=== PATIENT | male | born 1970 | race Caucasian/White ===

== ENCOUNTER 2024-10-15 20:06 | Emergency (ER) | payer BC, SELFPAY ==
[2024-10-15 20:16] VITALS: BP 175/100
[2024-10-15 21:56] VITALS: BMI 33.0
--- NOTE | 2024-10-15 23:17 | ED.GENMED ---
History of Present Illness
General
Chief Complaint: Musculo-Skeletal Complaint
Source: patient
Exam Limitations: none
Time Seen by Provider: 10/15/24 23:14
Nursing documentation reviewed up to this point in time: agreed with
History of Present Illness
History of Present Illness:
54-year-old male with a past medical history of hyperlipidemia presents to the emergency department today with concerns of left knee pain for the past 4 days. Patient reports that he has been increasing his running endurance recently and reports
that after his last run, he noted left knee pain and swelling he after stopping running. He states that he has been able to bear weight and states that the pain is usually bearable but sometimes it will get to the point where he will have
ibuprofen. He has been trying to hold off taking ibuprofen because he has lower platelet levels and he is going to see disease management nurse soon for this. Patient reports ibuprofen completely relieves his pain. Patient has tried compression stockings and
Tommy wraps with minimal relief. He notices the most discomfort when he is bearing weight or standing up but is relatively comfortable at rest. He denies any other injuries. He denies any other falls. He denies any pain or swelling in his calf.
Past History
Past History
ED Past Medical History: Hypercholesterolemia
ED Past Surgical History: None
Social History
Tobacco: Non-smoker
Alcohol: Occasional
Personal:
Living: with family
Review of Systems
Review of Systems
All Other Systems: ROS reviewed and negative except as documented in HPI and ROS
Phy Exam
Physical Exam
Physical Exam:
General: Patient is well appearing and in no acute distress; non-toxic
Skin: Warm and dry, no rashes or lesions
Head: Normocephalic, atraumatic
Eyes: Sclera non-icteric. EOMs intact.
Cardiac: Regular
Peripheral Vascular: 2+ DP and PT pulses on the left
Pulm: Normal respiratory effort
Musculoskeletal: Mild swelling noted surrounding the left knee, negative anterior drawer testing, negative Dickson's, no pain with varus valgus stress. Some pain with valgus stress of the left ankle but no significant ligamentous instability.
Neuro: CN II-XII intact, no focal neurologic deficits.
Psychiatric: Appropriate mood and affect.
Course
Orders/Labs/Results
Orders:
Orders
10/15/24 20:08
CR Knee - Left 4 Or More View* Urgent
Reason For Exam: PAIN/SWELLING
10/15/24 23:54
Cyclobenzaprine HCl [Flexeril] 5 mg PO NOW STA
Vital Signs
Initial and Last Documented VS:
Initial Vital Signs
Temp Pulse Resp BP Pulse Ox
99.4 F 90 16 175/100 99
10/15/24 20:16 10/15/24 20:16 10/15/24 20:16 10/15/24 20:16 10/15/24 20:16
Last Documented Vital Signs
Temp Pulse Resp BP Pulse Ox
99.4 F 90 16 175/100 99
10/15/24 20:16 10/15/24 20:16 10/15/24 20:16 10/15/24 20:16 10/15/24 20:16
MDM/Problems Addressed
Differential Diagnosis Includes:
Differentials include osteoarthritis, overuse injury, patellar tendinitis, quadriceps tendinitis, tibial plateau fracture,
MDM/Problems Addressed:
54-year-old male past medical Struve hyperlipidemia presents emergency department today with concerns right knee pain. Patient states that he started to increase his running recently and started to develop some pain. He denies any other injuries.
Physical exam he does have some tenderness around the knee joint most tender over the patellar tendon. He has neurovascularly intact. His x-ray shows moderate soft tissue swelling subcutaneous edema throughout the anterior as well as findings that
show just distal quadriceps tendinosis and edema surrounding the patellar tendon. Suspect tendinitis. Patient placed in knee immobilizer. Return precautions discussed. Follow-up with orthopedics discussed as well. Patient stable for discharge
Chronic conditions affecting care:
n/a
*Pulse Oximetry
Patient hypoxic: no
*Critical Care Note
Total Time (30-74mins, 75-104mins- exclusive of procedures): Not Applicable
Data Reviewed
Review of Other/Old Records Reveals: Records (Reviewed ER physician documentation from 07/29/2019 patient seen for anxiety was discharged)
Source: patient and records
ED Attending Note
-
Portions of this chart may have been created with voice recognition software.� Occasional wrong word or��sound alike� substitutions may have occurred due to the inherent limitations of voice recognition software.
Discharge Plan
Departure
Patient Disposition: Home (Routine Discharge)
Date of Disposition: 10/15/24
Time of Disposition: 23:55
Patient with high blood pressure during this ER visit?: Yes
Condition: Good
Discharge Problem:
Tendinosis of left knee
Instructions: Knee Immobilizer (DC), BLOOD PRESSURE
Prescriptions:
New
cyclobenzaprine 15 mg capsule,extended release 24hr
15 mg PO DAILY Qty: 10 0RF
Referrals:
Audra Lieberman DO [Family Provider] -
Lalo Pradhan MD [Active] - Call in 1-3 days for appt
Activity Restrictions/Additional Instructions:
As discussed, your x-ray demonstrated soft tissue swelling and edema overlying the distal quadriceps tendon and patellar tendon. This is likely overuse injury related to your running. Please wear knee immobilizer when ambulating or standing. You
can use compression with Tommy wrap at home and keep the knee elevated to help reduce swelling.
You can take 1 Flexeril tablet as needed once nightly before bed.
PLEASE RETURN TO THE EMERGENCY DEPARTMENT SHOULD YOU DEVELOP LOSS OF SENSATION IN YOUR KNEE, PALLOR INCREASING SWELLING, CHEST PAIN, SHORTNESS OF BREATH, OR ANY OTHER SIGNS OR SYMPTOMS WORRISOME TO YOU.
Interventions
Interventions:
*Risk Screen - Suicide Last Done: 10/15/24 20:16
*General Assessment Last Done: 10/15/24 20:16
*Neglect/Abuse Screening Last Done: 10/15/24 20:16
*ED- Fall Risk Assessment Last Done: 10/15/24 20:16
*ED COVID-19 Vaccine History Last Done: 10/15/24 20:16
*Nursing Disposition Last Done: 10/16/24 00:43
ED-Musculoskeletal Assessment Last Done: 10/15/24 21:57
Discharge Date and Time
Discharge Date/Time: 10/16/24 00:44
Print Language: CZECH
[2024-10-16] MEDS: FLEXERIL 5 MG PO (00:42)
== END 2024-10-16 00:44 | disposition home or self-care (01) ==
LOC: EMR 20:06
PROVIDERS: EMERGENCY PHYSICIAN Student in an Organized Health Care Education/Training Program; FAMILY PHYSICIAN Family Medicine
DX: M67.864 Other specified disorders of tendon, left knee (principal); E78.00 Pure hypercholesterolemia, unspecified
CPT/HCPCS: 29505; 99283; 73564